=== PATIENT | female | born 1950 | race American Indian/Alaskan Native ===

== ENCOUNTER 2020-09-02 10:11 | Outpatient (CLI) | payer MEDICARE ==
--- NOTE | 2020-09-02 11:08 | Mammography Report ---
DIGITAL SCREENING MAMMOGRAM WITH CAD, 09/02/2020 INDICATION: Routine screening mammography. TECHNIQUE: Digital right 2D mammography was obtained in the craniocaudal and mediolateral oblique pr ojections. This examination was interpreted with the benefit of Computer-Aided Detection analysis. COMPARISON: 09/01/2019 FINDINGS: Breast Density: There are scattered areas of fibroglandular density. There is no evidence of dominant mass, suspicious calcifications or architectural distortion in the r ight breast. Benign-appearing calcification remains. IMPRESSION: Follow up recommendation: Routine yearly BI-RADS Category 2: Benign. A "normal" or negative report should not discourage follow up or biopsy of a clinically significant f inding. A written summary of these findings will be mailed to the patient. The patient will be entered into a mammography reporting system which will generate a reminder letter for the patient's next appointmen t at the appropriate interval. The [employer] recommends yearly mammograms starting at age 40 and continuing as l mona as a woman is in good health. Breast MRI is recommended for women with an approximate 20-25% or greater lifetime risk of breast cancer, including women with a strong family history of breast or ova jamie cancer or who have been treated for Hodgkin's disease. Signer Name: Cosmo Elam MD Signed: 09/02/2020 11:04 AM Workstation Name: [id number]
== END 2020-09-02 10:12 | disposition home or self-care (01) ==
LOC: SPVWC 10:11
PROVIDERS: ATTEND Surgery
DX: Z12.31 Encounter for screening mammogram for malignant neoplasm of breast (principal)
CPT/HCPCS: 77067

== ENCOUNTER 2020-09-02 11:50 | Outpatient (CLI) | payer MEDICARE ==
--- NOTE | 2020-09-02 15:09 | Vascular Lab Report ---
DUPLEX DOPPLER UPPER EXTREMITY VENOUS, LEFT INDICATION / CLINICAL INFORMATION: Left hand swelling. History of breast cancer. TECHNIQUE: Duplex doppler imaging was performed through the veins of the left upper extremity using v enous compression and other maneuvers. COMPARISON: None available. FINDINGS: LEFT INTERNAL JUGULAR VEIN: Negative. LEFT SUBCLAVIAN VEIN: Negative. LEFT AXILLARY VEIN: Negative. LEFT BRACHIAL VEIN: Negative. LEFT FOREARM VEINS: Negative. LEFT BASILIC VEIN (SUPERFICIAL): Negative. ADDITIONAL FINDINGS: No abnormal mass or fluid collection is seen. IMPRESSION: No sonographic evidence for DVT. Scribed by: Christina Barillas RDMS, RVT Scribed: 09/02/2020 1:57 PM I have reviewed the images, agree with this report, and edited this report as needed. Signer Name: Anand Russo MD Signed: 09/02/2020 3:04 PM Workstation Name: [id number]
== END 2020-09-02 11:51 | disposition home or self-care (01) ==
LOC: VAS 11:50
PROVIDERS: ATTEND Surgery
DX: R22.32 Localized swelling, mass and lump, left upper limb (principal)
CPT/HCPCS: 77067

== ENCOUNTER 2021-10-19 09:01 | Outpatient (CLI) | payer MEDICARE ==
--- NOTE | 2021-10-20 10:05 | Mammography Report ---
DIGITAL SCREENING MAMMOGRAM WITH CAD, 10/19/2021 CLINICAL INFORMATION / INDICATION: Routine screening mammography. History of left mastectomy in 1998. TECHNIQUE: Digital right 2D mammography was obtained in the craniocaudal and mediolateral oblique pr ojections. This examination was interpreted with the benefit of Computer-Aided Detection analysis. COMPARISON: 09/02/2020, 09/01/2019 FINDINGS: Breast Density: There are scattered areas of fibroglandular density. No dominant mass, suspicious calcifications, or architectural distortion in the right breast. Right b reast biopsy clip. No interval change. IMPRESSION: No mammographic evidence of malignancy. Follow up recommendation: Routine yearly screening mammogram. - The ACR recommends yearly screening MRI in patients with a personal history of breast cancer who aguirre ve dense fibroglandular tissue as well in patients who were diagnosed with breast cancer under the ag e of 50. BI-RADS Category 2: BENIGN. A "normal" or negative report should not discourage follow up or biopsy of a clinically significant f inding. A written summary of these findings will be mailed to the patient. The patient will be entered into a mammography reporting system which will generate a reminder letter for the patient's next appointmen t at the appropriate interval. The [employer] recommends yearly mammograms starting at age 40 and continuing as l mona as a woman is in good health. Breast MRI is recommended for women with an approximate 20-25% or greater lifetime risk of breast cancer, including women with a strong family history of breast or ova jamie cancer or who have been treated for Hodgkin's disease. Signer Name: Lindsay Garcia MD Signed: 10/20/2021 10:01 AM Workstation Name: [email or web address]
== END 2021-10-19 09:02 | disposition home or self-care (01) ==
LOC: MAMMO 09:01
PROVIDERS: ATTEND Surgery
DX: Z12.31 Encounter for screening mammogram for malignant neoplasm of breast (principal)